=== PATIENT | male | born 1960 | race Caucasian/White ===

== ENCOUNTER 2016-09-24 15:14 | Emergency (ER) | payer OTHER ==
[2016-09-24 15:19] VITALS: BMI 39.3
[2016-09-24] MEDS ORDERED: NITROSTAT SL PRN (15:37)
--- NOTE | 2016-09-24 15:38 | DR.CP ---
HPI - Time Seen Time seen: 15:25 - PCP Primary Care Physician: KATHERIN - HPI Comment HPI Comment: PRECORDIAL CHEST ANN MARIE, PRESSURE RADIATING TO LT ARM AND SHOULDER THIS AM. CONSTANT. DID NOT TAKE HIS PAIN MED. - Complaint Chief Complaint Doctor Comments: CHEST PAIN Chief Complaint:: PT. C/O CHEST PAIN THAT BEGAN THIS MORNING UPON AWAKENING WHICH HAS BEEN CONSTANT IN NATURE. PT. STATES THE PAIN RADIATES UNDER LEFT BREAST, LEFT SHOULDER, AND LEFT ARM. PT. ALSO C/O FATIGUE. - Reviewed Nurses Notes Review: Yes - Source History Provided: Patient - Mode of Arrival Mode of Arrival: Ambulatory - Timing Onset of Chief Complaint: 09/24/16 Came on: Suddenly Pain: Present Now - Duration Duration: Constant Duration: Hours - Location Location of Chest Pain: Left, Chest Chest Pain Radiation Location: Left Arm, Left Shoulder - Context Onset: At rest Cardiac Risk Factors: Smoker, Family History, Hyperlipidemia, HTN PE Risk Factors: Recent Trauma/Surgery History of: Similar pain in the past Prehospital Care: ASA - Quality Quality: Pressure like - Severity Severity: Moderate - Modifying Factors Worsens: Nothing Impoves: Nothing - Associated Signs and Symptoms Associated Signs and Symptoms: Shortness of Breath PMH - PMH Past Medical History: Yes Past Medical History: Coronary Artery Disease, Dyslipidemia, Migraines, Headaches, Hypertension, Kidney Stones, Sleep Apnea Past Surgical History: Yes Surgical History: CABG/Valve Surgery, Cholecystectomy, Ortho Surgery, Lithotripsy - Family History History of Family Medical Conditions: Yes Family Medical History: Diabetes Mellitus, [place], Hypertension - Social History Does patient currently use any type of tobacco product: No Have you used tobacco products in the last 12 months: Yes Type of Tobacco Use: Cigarettes Does any household member use tobacco: No Alcohol Use: None Do you use any recreational Drugs:: No Lives With: Family Lives Where: Home - infectious screening In the last 2 months have you had wt loss of >10#?: NO Have you had fever, night sweats or hemotysis?: No Have you traveled outside the country in the last 6 months?: No Isolation: Standard ROS - Review of Systems Constitutional: Fatigue, Loss of Appetite. negative: Chills, Diaphoresis, Weakness Eyes: No Symptoms Reported. negative: Eye Pain, Discharge ENTM: No Symptoms Reported. negative: Ear Pain, Nose Discharge, Nose Congestion , Throat Pain Respiratoy: Short of Breath. negative: Productive Cough, Non-Productive Cough, Wheezing, Hemoptysis Cardiovascular: No Symptoms Reported, Chest Pain. negative: Edema, Palpitations , Syncope Genitourinary: No Symptoms Reported. negative: Dysuria, Frequency, Hematuria Neurological: No Symptoms Reported, Weakness (SAME SINCE SURGERY). negative: Headache Musculoskeletal: Muscle Pain Integumentary: No Symptoms Reported Hematologic/Lymphatic: No Symptoms Reported Endocrine: No Symptoms Reported All Other Systems: Reviewed and Negative PE - Vitals Vitals: Temperature 97.8 F Pulse Rate [Right Brachial] 70 Pulse Rate 79 Respiratory Rate 18 Blood Pressure [Left Arm] 99/61 Blood Pressure [Right Arm] 96/60 Blood Pressure 112/69 O2 Sat by Pulse Oximetry 96 - General Limitations: No Limitations General Appearance: Alert - Head Head Exam: Normal Inspection - Eyes Eye exam: Normal Appearance - ENT ENT Exam: Normal External Ear Exam - Chest Chest Inspection: Symmetric Chest Wall Rise - Respiratory Respiratory Exam: Normal Lung Sounds Bilat, Chest Wall Tenderness (MILD/POST OP) Respiratory Exam: Bilateral Clear to Auscultation - Cardiovascular Cardiovascular Exam: Regular Rate, Normal Rhythm, Normal Heart Sounds Pulse: Normal, Radial, Femoral Edema: Normal - Abdominal Exam Abdominal Exam: Normal Bowel Sounds, Soft, Distention. negative: Tenderness - Extremities Extremities Exam: Normal Inspection, Full ROM. negative: Tenderness - Back Back Exam: Normal Inspection - Neurologic Neurological Exam: Alert, Oriented X3, CN II-XII Intact, Reflexes Normal. negative: Motor Sensory Deficit - Psychiatric Psychiatric Exam: Normal Affect, Normal Mood - Skin Skin Exam: Normal Color MDM - Additional Information Additional Information Obtained From: Family - Differential Diagnosis Differential Diagnosis: Angina, Chest Wall Pain, Myocardial Infarction, Pericarditis, Pleuritis, Pneumonia, Pneumothorax, Pulmonary Embolus (CHF) Course - Treatment Treatment: SEE ORDERS. PAIN RELIEF IN ED WITH MORPHINE. PATIENT SAID HE FEEL FINE. WANT TO GO HOME. - Consultation Consultation Comments: DISCUSS WITH KIERSTEN GILLILAND, [facility], [place], VASCULAR SURGERY. PT TO GO HOME AND CALL THEIR SERVICE IE PAIN PERSIST. WILL HIM WEDNESDAY SCHEDULE. - Education/Counseling Education/Counseling: Patient, Family, Education Educated On: Treatment, Diagnosis, Needs for Follow Up ROR - Labs Reviewed Laboratory Results Reviewed?: Yes Result Diagrams: 09/24/16 15:40 09/24/16 15:40 Laboratory: WBC 9.0 X10^3/uL (3.6-10.0) 09/24/16 15:40 RBC 4.11 X10^6/uL (4.7-6.0) L 09/24/16 15:40 Hgb 12.2 g/dL (13.5-18.0) L 09/24/16 15:40 Hct 36.3 % (42.0-54.0) L 09/24/16 15:40 MCV 88.4 fL (80.0-100.0) 09/24/16 15:40 MCH 29.8 pg (27.0-34.0) 09/24/16 15:40 MCHC 33.7 g/dL (33.0-35.0) 09/24/16 15:40 RDW 15.6 % (11.6-16.5) 09/24/16 15:40 Plt Count 251 X10^3/uL (150.0-450.0) 09/24/16 15:40 MPV 7.6 fL (7.4-11.0) 09/24/16 15:40 Neut % 66.0 % (42.0-75.0) 09/24/16 15:40 Lymph % 22.4 % (21.0-51.0) 09/24/16 15:40 Willacy % 8.2 % (0.0-13.0) 09/24/16 15:40 Eos % 2.1 % (0.9-2.9) 09/24/16 15:40 Baso % 1.3 % (0.2-1.0) H 09/24/16 15:40 Neut # 6.0 x10^3/uL (2.2-4.8) H 09/24/16 15:40 Lymph # 2.0 X10^3/uL (1.3-2.9) 09/24/16 15:40 Willacy # 0.7 x10^3/uL (0.3-0.8) 09/24/16 15:40 Eos # 0.2 x10^3/uL (0.0-0.2) 09/24/16 15:40 Baso # 0.1 X10^3/uL (0.0-0.1) 09/24/16 15:40 Absolute Nucleated RBC 0.0 /100WBC 09/24/16 15:40 Sodium 138 mmol/L (136-145) 09/24/16 15:40 Corrected Sodium TNP 09/24/16 15:40 Potassium 4.3 mmol/L (3.5-5.1) 09/24/16 15:40 Chloride 102 mmol/L (98-107) 09/24/16 15:40 Carbon Dioxide 26.0 mmol/L (21-32) 09/24/16 15:40 BUN 14 mg/dL (7-18) 09/24/16 15:40 Creatinine 1.43 mg/dL (0.70-1.30) H 09/24/16 15:40 Est GFR (MDRD) Af Amer > 60 (>60) 09/24/16 15:40 Est GFR (MDRD) Non-Af 54 (>60) L 09/24/16 15:40 Glucose 96 mg/dL (65-99) 09/24/16 15:40 Calcium 9.0 mg/dL (8.5-10.1) 09/24/16 15:40 Corrected Calcium 9.6 mg/dL (8.5-10.1) 09/24/16 15:40 Total Bilirubin 0.30 mg/dL (0.2-1.0) 09/24/16 15:40 AST 12 Units/L (15-37) L 09/24/16 15:40 ALT 16 Units/L (12-78) 09/24/16 15:40 Alkaline Phosphatase 104 Units/L (46-116) 09/24/16 15:40 Creatine Kinase 54 Units/L (39-308) 09/24/16 15:40 CK-MB (CK-2) 1.0 ng/mL (0-4.0) 09/24/16 15:40 CK/CKMB % Calc 1.9 % (<4) 09/24/16 15:40 Troponin I < 0.02 ng/mL (0-1.5) 09/24/16 15:40 B-Natriuretic Peptide 161 pg/mL (0-79) H 09/24/16 15:40 Total Protein 6.8 g/dL (6.4-8.2) 09/24/16 15:40 Albumin 3.2 g/dL (3.4-5.0) L 09/24/16 15:40 Globulin 3.6 g/dL (2.5-4.5) 09/24/16 15:40 Albumin/Globulin Ratio 0.9 Ratio (1.1-2.1) L 09/24/16 15:40 - XRAY XRAY Interpreted by: Radiologist XRAY Findings: REPORT DISCUSS WITH PATIENT AND FAMILY. - EKG Rhythm: NSR (EKG NOTED) - Diagnosis Discharge Problem: Status post coronary artery bypass graft Chest pain Qualifiers: Chest pain type: precordial pain Qualified Code(s): R07.2 - Precordial pain - Discharge Plan Disposition: 01 HOME, SELF-CARE Condition: Stable - Follow ups/Referrals Follow ups/Referrals: Agapito Keita [Primary Care Provider] - 09/25/16 - Instructions Instructions: Chest Pain Observation Additional Instructions: RETURN TO ED IF WORSE. CALL E[facility]ER ALSO IF PAIN PERSIST.
[2016-09-24] MEDS ORDERED: ASPIRIN 81 MG CHEWTAB ONE (15:51)
[2016-09-24] MEDS ORDERED: ASPIRIN 81 MG CHEWTAB PO SCH (16:00)
[2016-09-24 16:02] LABS: BASOPHILS # (AUTO) 0.1 X10^3/uL (0.0-0.1); BASOPHILS % (AUTO) 1.3 % (0.2-1.0); EOSINOPHILS # (AUTO) 0.2 x10^3/uL (0.0-0.2); EOSINOPHILS % (AUTO) 2.1 % (0.9-2.9); HEMATOCRIT 36.3 % (42.0-54.0); HEMOGLOBIN 12.2 g/dL (13.5-18.0); LYMPHOCYTES % (AUTO) 22.4 % (21.0-51.0); MEAN CORPUSCULAR HEMOGLOBIN 29.8 pg (27.0-34.0); MEAN CORPUSCULAR HGB CONC 33.7 g/dL (33.0-35.0); MEAN CORPUSCULAR VOLUME 88.4 fL (80.0-100.0); MEAN PLATELET VOLUME 7.6 fL (7.4-11.0); MONOCYTES # (AUTO) 0.7 x10^3/uL (0.3-0.8); MONOCYTES % (AUTO) 8.2 % (0.0-13.0); PLATELET COUNT 251 X10^3/uL (150.0-450.0); RED BLOOD COUNT 4.11 X10^6/uL (4.7-6.0); RED CELL DISTRIBUTION WIDTH 15.6 % (11.6-16.5)
[2016-09-24 16:22] LABS: B-TYPE NATRIURETIC PEPTIDE 161 pg/mL (0-79)
[2016-09-24 16:23] LABS: ALANINE AMINOTRANSFERASE 16 Units/L (12-78); ALBUMIN 3.2 g/dL (3.4-5.0); ALKALINE PHOSPHATASE 104 Units/L (46-116); ASPARTATE AMINO TRANSFERASE 12 Units/L (15-37); BLOOD UREA NITROGEN 14 mg/dL (7-18); CHLORIDE 102 mmol/L (98-107); CKMB % 1.9 % (<4); COR CA(FOR HYPOALB) 9.6 mg/dL (8.5-10.1); CREATINE KINASE 54 Units/L (39-308); CREATININE 1.43 mg/dL (0.70-1.30); GLUCOSE 96 mg/dL (65-99); SODIUM 138 mmol/L (136-145); TOTAL PROTEIN 6.8 g/dL (6.4-8.2); TROPONIN I < 0.02 ng/mL (0-1.5); eGFR BLACK RACES > 60 (>60); eGFR NON BLACK RACES 54 (>60)
[2016-09-24] MEDS ORDERED: ZOFRAN INJ 4 MG VIAL IVP ONE (16:32)
[2016-09-24] MEDS ORDERED: MORPHINE SULFATE INJ 4 MG IVP ONE (16:32)
[2016-09-24] MEDS ORDERED: MORPHINE SULFATE INJ 4 MG ONE (16:34)
[2016-09-24] MEDS ORDERED: ZOFRAN INJ 4 MG VIAL ONE (16:34)
[2016-09-24 18:47] VITALS: BP 99/61
== END 2016-09-24 18:53 | disposition home or self-care (01) ==
LOC: ER 15:30
DX: R07.2 Precordial pain (principal); Z95.1 Presence of aortocoronary bypass graft; Z79.01 Long term (current) use of anticoagulants
CPT/HCPCS: 36415; 71010; 80053; 82550; 82553; 83880; 84484; 85025; 93005; 93010; 96365; 96374; 96375; 99283; A4222; J2270; J2405

== ENCOUNTER 2022-11-26 10:14 | Observation (INO) ==
--- NOTE | 2022-11-26 10:18 | DR.CP ---
HPI Time Seen Time Seen by Provider: 11/26/22 10:25 Complaint Chief Complaint Doctor Comments: 62 y/o male returns with persistent chest pain, shortness of breath. Started yesterday afternoon, after bringing up garbage cans. Seen and evaluated here by me, last pm. Labs acceptable then, pt was d/c'd to home. Pain has persisted, worsened. Located across anterior chest. Radiates to left shoulder blade. Worse with breathing, nothing makes it better. Associated with shortness of breath. Reviewed Nurses Notes Review: Yes Source History Provided: Patient PMH PMH Past Medical History: CHF, Hypertension and [place] Past Surgical History: Yes Surgical History: Angioplasty/Stents and CABG/Valve Surgery Family History Family Medical History: [place], Heart Failure and Hypertension Social History Does patient currently use any type of tobacco product: Yes Type of Tobacco Use: Cigarettes Alcohol Use: Occasionally Do you use any recreational Drugs:: No ROS Review of Systems Constitutional: No Symptoms Reported Eyes: No Symptoms Reported ENTM: No Symptoms Reported Respiratoy: Short of Breath Cardiovascular: Chest Pain Gastrointestinal/Abdominal: No Symptoms Reported Genitourinary: No Symptoms Reported Neurological: No Symptoms Reported Musculoskeletal: No Symptoms Reported Integumentary: No Symptoms Reported All Other Systems: Reviewed and Negative PE Vitals Vitals: Vital Signs Temperature 98.3 F Pulse Rate 80 Pulse Rate 87 Pulse Rate 85 Pulse Rate 85 Pulse Rate 84 Pulse Rate 87 Pulse Rate 84 Pulse Rate 76 Pulse Rate 67 Pulse Rate 71 Pulse Rate 74 Pulse Rate 73 Pulse Rate 72 Pulse Rate 65 Pulse Rate 65 Pulse Rate 70 Pulse Rate 71 Pulse Rate 67 Pulse Rate 68 Pulse Rate 68 Pulse Rate 68 Pulse Rate 66 Pulse Rate 71 Pulse Rate 70 Pulse Rate 74 Pulse Rate 72 Pulse Rate 75 Pulse Rate 76 Pulse Rate 76 Pulse Rate 79 Respiratory Rate 16 Respiratory Rate 24 Respiratory Rate 24 Respiratory Rate 22 Respiratory Rate 25 Respiratory Rate 18 Respiratory Rate 26 Respiratory Rate 25 Respiratory Rate 22 Respiratory Rate 34 Respiratory Rate 22 Respiratory Rate 15 Respiratory Rate 18 Respiratory Rate 20 Respiratory Rate 19 Respiratory Rate 22 Respiratory Rate 18 Respiratory Rate 21 Respiratory Rate 22 Respiratory Rate 23 Respiratory Rate 21 Respiratory Rate 22 Respiratory Rate 23 Respiratory Rate 16 Respiratory Rate 39 Respiratory Rate 20 Respiratory Rate 24 Blood Pressure 169/90 Blood Pressure 183/87 Blood Pressure 187/88 Blood Pressure 171/81 Blood Pressure 180/89 Blood Pressure 167/81 Blood Pressure 165/83 Blood Pressure 140/70 Blood Pressure 148/69 Blood Pressure 157/75 Blood Pressure 151/76 Blood Pressure 147/74 Blood Pressure 176/84 O2 Sat by Pulse Oximetry 97 O2 Sat by Pulse Oximetry 96 O2 Sat by Pulse Oximetry 96 O2 Sat by Pulse Oximetry 96 O2 Sat by Pulse Oximetry 97 O2 Sat by Pulse Oximetry 98 O2 Sat by Pulse Oximetry 97 O2 Sat by Pulse Oximetry 99 O2 Sat by Pulse Oximetry 100 O2 Sat by Pulse Oximetry 99 O2 Sat by Pulse Oximetry 99 O2 Sat by Pulse Oximetry 99 O2 Sat by Pulse Oximetry 98 O2 Sat by Pulse Oximetry 99 O2 Sat by Pulse Oximetry 98 O2 Sat by Pulse Oximetry 99 O2 Sat by Pulse Oximetry 98 O2 Sat by Pulse Oximetry 98 O2 Sat by Pulse Oximetry 98 O2 Sat by Pulse Oximetry 98 O2 Sat by Pulse Oximetry 99 O2 Sat by Pulse Oximetry 98 O2 Sat by Pulse Oximetry 97 O2 Sat by Pulse Oximetry 97 O2 Sat by Pulse Oximetry 97 O2 Sat by Pulse Oximetry 96 O2 Sat by Pulse Oximetry 96 O2 Sat by Pulse Oximetry 98 O2 Sat by Pulse Oximetry 98 O2 Sat by Pulse Oximetry 99 General General Appearance: Alert and In No Apparent Distress Eyes Eye exam: PERRL and EOMI ENT ENT Exam: Mucous Membranes Moist Chest Chest Inspection: Normal Inspection and Tenderness (anterior chest wall) Respiratory Respiratory Exam: Normal Lung Sounds Bilat; negative Accessory Muscle Use or Re spiratory Distress Cardiovascular Cardiovascular Exam: Regular Rate, Normal Rhythm and Normal Heart Sounds Abdominal Exam Abdominal Exam: Normal Bowel Sounds and Soft; negative Tenderness Extremities Extremities Exam: Normal Inspection and Full ROM; negative Tenderness or Edema Neurologic Neurological Exam: Alert, Oriented X3 and CN II-XII Intact; negative Motor Sensory Deficit Skin Skin Exam: Warm and Dry COURSE Treatment Treatment: 62 y/o male with chest pain, shortness of breath since yesterday. W/u initiated. Pt took ASA already. Given IV morphine/zofran. EKG - without acute ischemic changes. Added IV ativan. 1119 - Labs acceptable - with normal troponin, d-dimer, BNP. CXR with some increased interstitial markings. Covid sent. Will add a CTA of the chest for further evaluation. 1336 - CTA without acute abnormalities, except mild atelectasis. No evidence for acute CAD/PE or aorta issues. Pt with significant underlying CAD. Recommend admission for further evaluation. Will discuss with Dr Keita as to admission, will consult with cardiology (sees Dr Jefferson) with Dr Jimenez. Pt was seen by cardiology. He does not feel the chest pain is cardiac in origin. Pt told him that he was having difficulty in swallowing. Will consult Dr Pride for possible EGD. ROR Labs Reviewed Laboratory Results Reviewed?: Yes 11/26/22 10:28 11/26/22 10:28 Laboratory: WBC 10.3 X10^3/uL (3.6-10.0) H 11/26/22 10:28 RBC 4.50 X10^6/uL (4.7-6.0) L 11/26/22 10:28 Hgb 13.9 g/dL (13.5-18.0) 11/26/22 10:28 Hct 40.7 % (42.0-54.0) L 11/26/22 10:28 MCV 90.4 fL (80.0-100.0) 11/26/22 10:28 MCH 30.8 pg (27.0-34.0) 11/26/22 10:28 MCHC 34.1 g/dL (33.0-35.0) 11/26/22 10:28 RDW 15.2 % (11.6-16.5) 11/26/22 10:28 Plt Count 203 X10^3/uL (150.0-450.0) 11/26/22 10:28 MPV 8.3 fL (7.4-11.0) 11/26/22 10:28 Neut % (Auto) 79.2 % (42.0-75.0) H 11/26/22 10:28 Lymph % (Auto) 13.2 % (21.0-51.0) L 11/26/22 10:28 Pepin % (Auto) 5.9 % (0.0-13.0) 11/26/22 10:28 Eos % (Auto) 0.9 % (0.9-2.9) 11/26/22 10:28 Baso % (Auto) 0.8 % (0.2-1.0) 11/26/22 10:28 Neut # (Auto) 8.2 x10^3/uL (2.2-4.8) H 11/26/22 10:28 Lymph # (Auto) 1.4 X10^3/uL (1.3-2.9) 11/26/22 10:28 Pepin # (Auto) 0.6 x10^3/uL (0.3-0.8) 11/26/22 10:28 Eos # (Auto) 0.1 x10^3/uL (0.0-0.2) 11/26/22 10:28 Baso # (Auto) 0.1 X10^3/uL (0.0-0.1) 11/26/22 10:28 Absolute Nucleated RBC 0.0 /100WBC 11/26/22 10:28 D-Dimer 0.38 ug/ml (0.0-0.57) 11/26/22 10:28 Sodium 138 mmol/L (136-145) 11/26/22 10:28 Corrected Sodium TNP 11/26/22 10:28 Potassium 3.7 mmol/L (3.5-5.1) 11/26/22 10:28 Chloride 101 mmol/L (98-107) 11/26/22 10:28 Carbon Dioxide 25.6 mmol/L (21-32) 11/26/22 10:28 BUN 13 mg/dL (7-18) 11/26/22 10:28 Creatinine 1.36 mg/dL (0.70-1.30) H 11/26/22 10:28 Est GFR (MDRD) Af Amer > 60 (>60) 11/26/22 10:28 Est GFR (MDRD) Non-Af 56 (>60) L 11/26/22 10:28 Glucose 95 mg/dL (65-99) 11/26/22 10:28 Calcium 9.2 mg/dL (8.5-10.1) 11/26/22 10:28 Corrected Calcium TNP 11/26/22 10:28 Total Bilirubin 0.60 mg/dL (0.2-1.0) 11/26/22 10:28 AST 25 Units/L (15-37) 11/26/22 10:28 ALT < 6 Units/L (12-78) L 11/26/22 10:28 Alkaline Phosphatase 117 Units/L (46-116) H 11/26/22 10:28 Troponin I High Sens 21.6 ng/L (4.0-60.0) 11/26/22 14:35 B-Natriuretic Peptide 36.2 pg/mL (0-79) 11/26/22 10:28 Total Protein 7.0 g/dL (6.4-8.2) 11/26/22 10:28 Albumin 4.2 g/dL (3.4-5.0) 11/26/22 10:28 Globulin 2.8 g/dL (2.5-4.5) 11/26/22 10:28 Albumin/Globulin Ratio 1.5 Ratio (1.1-2.1) 11/26/22 10:28 Lipase 88 Units/L (73-393) 11/26/22 10:28 SARS CoV-2 RNA Rapid POP Negative (NEGATIVE) 11/26/22 11:15 Labs acceptable. XRAY XRAY Interpreted by: Both X-ray Results: CXR, CTA without worrisome findings. EKG Rate: 77 Drummond[place]: Normal Rhythm: NSR Block: RBBB (w/LAFB) ST: Nonsp Opioid Opioid Risk Tool Age (Stephon box if 16-45): No Total: 0 Total Score Risk Category: Low Risk Copyright: Hermilo SHETH predicting aberrant behaviors Discharge Plan Diagnosis Discharge Problem: Chest pain Discharge Plan Patient Disposition: ADMITTED INPATIENT Condition: Stable Orders to Discharge Patient Discharge Orders: Transfer (Routine); Ordered 11/26/22 Ordered By: Diego Friedman
[2022-11-26 10:20] VITALS: BMI 36.3
[2022-11-26] MEDS ORDERED: MORPHINE SULFATE INJ 4 MG IVP ONE (10:25)
[2022-11-26] MEDS ORDERED: ZOFRAN INJ 4 MG VIAL IVP ONE (10:25)
[2022-11-26] MEDS ORDERED: ZOFRAN INJ 4 MG VIAL ONE (10:26)
[2022-11-26] MEDS ORDERED: MORPHINE SULFATE INJ 4 MG ONE (10:26)
[2022-11-26] MEDS ORDERED: ATIVAN INJ 2 MG VIAL IVP STA (10:39)
[2022-11-26] MEDS ORDERED: ATIVAN INJ 2 MG VIAL ONE (10:41)
[2022-11-26 10:46] LABS: BASOPHILS # (AUTO) 0.1 X10^3/uL (0.0-0.1); BASOPHILS % (AUTO) 0.8 % (0.2-1.0); EOSINOPHILS # (AUTO) 0.1 x10^3/uL (0.0-0.2); EOSINOPHILS % (AUTO) 0.9 % (0.9-2.9); HEMATOCRIT 40.7 % (42.0-54.0); HEMOGLOBIN 13.9 g/dL (13.5-18.0); LYMPHOCYTES # (AUTO) 1.4 X10^3/uL (1.3-2.9); LYMPHOCYTES % (AUTO) 13.2 % (21.0-51.0); MEAN CORPUSCULAR HEMOGLOBIN 30.8 pg (27.0-34.0); MEAN CORPUSCULAR HGB CONC 34.1 g/dL (33.0-35.0); MEAN CORPUSCULAR VOLUME 90.4 fL (80.0-100.0); MEAN PLATELET VOLUME 8.3 fL (7.4-11.0); MONOCYTES # (AUTO) 0.6 x10^3/uL (0.3-0.8); MONOCYTES % (AUTO) 5.9 % (0.0-13.0); NEUTROPHILS # (AUTO) 8.2 x10^3/uL (2.2-4.8); NEUTROPHILS % (AUTO) 79.2 % (42.0-75.0); PLATELET COUNT 203 X10^3/uL (150.0-450.0); RED CELL DISTRIBUTION WIDTH 15.2 % (11.6-16.5); WHITE BLOOD COUNT 10.3 X10^3/uL (3.6-10.0)
--- NOTE | 2022-11-26 10:50 | EKG ---
Test Reason : Chest Pain Blood Pressure : */* mmHG Vent. Rate : 77 BPM Atrial Rate : 77 BPM P-R Int : 170 ms QRS Dur : 152 ms QT Int : 440 ms P-R-T Axes : 28 -57 95 degrees QTc Int : 497 ms Normal sinus rhythm Right bundle branch block Left anterior fascicular block Bifascicular block Left ventricular hypertrophy with repolarization abnormality ( R in aVL , [place] ) Abnormal ECG When compared with ECG of 25-NOV-2022 17:56, (Unconfirmed) No significant change was found Referred By: Confirmed By:
--- NOTE | 2022-11-26 11:01 | RAD ---
HISTORYCHEST PAIN, SOB.brSTUDYCHEST, 1 VIEWCOMPARISONAugust 16TECHNIQUEPortable chest radiographFINDINGSStable heart size. Postoperative changes of median sternotomy and coronary bypass surgery. Developing interstitial prominence with alveolar ground-glass changes most pronounced within the mid to lower lung hilario. No significant pleural fluid collections. There is no evidence of free air or pneumothorax. No acute osseous abnormalities of the chest are identified.IMPRESSIONDeveloping interstitial prominence and ground-glass changes which could be associated with pulmonary edema or atypical pneumonia depending on clinical presentationThe heart size is stable and mildly enlarged for technique, with evidence of prior coronary bypass surgery.Electronically signed by: MARILOU GUTIERREZ (Nov 26, 2022 10:50:17)
[2022-11-26 11:06] LABS: ALANINE AMINOTRANSFERASE < 6 Units/L (12-78); ALBUMIN 4.2 g/dL (3.4-5.0); ALKALINE PHOSPHATASE 117 Units/L (46-116); ASPARTATE AMINO TRANSFERASE 25 Units/L (15-37); BLOOD UREA NITROGEN 13 mg/dL (7-18); CALCIUM 9.2 mg/dL (8.5-10.1); CARBON DIOXIDE 25.6 mmol/L (21-32); CHLORIDE 101 mmol/L (98-107); CREATININE 1.36 mg/dL (0.70-1.30); GLUCOSE 95 mg/dL (65-99); LIPASE 88 Units/L (73-393); POTASSIUM 3.7 mmol/L (3.5-5.1); SODIUM 138 mmol/L (136-145); eGFR NON BLACK RACES 56 (>60)
--- NOTE | 2022-11-26 12:24 | CT ---
HISTORYCHEST PAIN, SOBSTUDYCTA CHESTCOMPARISONChest radiograph from 11/26/2022.TECHNIQUECTA chest protocol with axial images from the thoracic inlet to upper abdomen with IV contrast. Sagittal and coronal reformats and MIP images were created. Automated exposure control was utilized.FINDINGSThe visualized thyroid gland appears benign. Streak artifact from contrast in the right subclavian vein and SVC limits evaluation. Mildly atherosclerotic normal caliber thoracic aorta. No central PE. No definite peripheral PE but suboptimal contrast bolus timing and streak/motion artifact mildly limits evaluation. The heart is mildly enlarged. No pericardial effusion. No pathologic adenopathy in the thorax. Suspect hepatic steatosis. Status post cholecystectomy. Mild thickening of the adrenal glands is nonspecific but often adenomatous. Atrophy of portion of the left upper pole of the kidney. Postoperative change the greater curvature of the stomach. No acute osseous abnormality. The trachea and mainstem bronchi appear patent. Mild paraseptal emphysema in the left upper lobe. Mild mainly dependent ground-glass opacities likely atelectasis. No pleural effusion or pneumothorax. Status post median sternotomy and CABG.IMPRESSIONNo definite PE.Mild cardiomegaly. Mainly dependent ground-glass opacities in the lungs likely atelectasis.Incidental findings as above.Electronically signed by: Sadiq Alcantar (Nov 26, 2022 12:23:23)
[2022-11-26] MEDS ORDERED: NORVASC TAB 5 MG PO ONE (14:36)
[2022-11-26] MEDS ORDERED: NORVASC TAB 5 MG ONE (14:38)
--- NOTE | 2022-11-26 14:59 | DR.CONSULT ---
CONSULT Consultation for Day of: Date: 11/26/22 Chief Complaint Chief Complaint: chest pain/sob/difficulty swallowing- pills getting caught Allergies Allergies Allergy/AdvReac Type Severity Reaction Status Date / Time Influenza Virus Vaccines Allergy Verified 11/25/22 18:05 CODEINE Allergy Uncoded 09/24/16 16:32 History of Present Illness History of Present Illness: I know him from years ago- last stent 2020 ( still on tricagelor)-tells me recent echo/nuc/holter from [facility] in 08/02 ok- says last week: pills in particular and food gets caught provoking coughing/sob- came to er last pm after moving garbage can with cp/sob- ekg: nothing acute/trops negative- came back with sob /cp this am after taking am pills-ekg: no changes, another trop neagtive and second one pending. bp up. cp mostly on since yesterday but got some relief with pain meds. d dimer negative. CTA chest neg for PE. Has a history of esophageal stricture s/p stretching with [facility] in [place] Past Medical History Past Medical History: CHF, Hypertension and [place] Past Surgical History Surgical History: Angioplasty/Stents and CABG/Valve Surgery Family History Family Medical History: [place], Heart Failure and Hypertension Social History Does patient currently use any type of tobacco product: Yes Have you used tobacco products in the last 12 months: Yes Type of Tobacco Use: Cigarettes Does any household member use tobacco: Yes Alcohol Use: Occasionally Medications Home Medications: Influenza Virus Vaccines Allergy (Verified 11/25/22 18:05) CODEINE Allergy (Uncoded 09/24/16 16:32) Physical Exam Vital Signs: Vital Signs Temperature 98.3 F Pulse Rate 65 Pulse Rate 65 Pulse Rate 70 Pulse Rate 71 Pulse Rate 67 Pulse Rate 68 Pulse Rate 68 Pulse Rate 68 Pulse Rate 66 Pulse Rate 71 Pulse Rate 70 Pulse Rate 74 Pulse Rate 72 Pulse Rate 75 Pulse Rate 76 Pulse Rate 76 Pulse Rate 79 Respiratory Rate 22 Respiratory Rate 15 Respiratory Rate 18 Respiratory Rate 20 Respiratory Rate 19 Respiratory Rate 22 Respiratory Rate 18 Respiratory Rate 21 Respiratory Rate 22 Respiratory Rate 23 Respiratory Rate 21 Respiratory Rate 22 Respiratory Rate 23 Respiratory Rate 16 Respiratory Rate 39 Respiratory Rate 20 Respiratory Rate 24 Blood Pressure 167/81 Blood Pressure 165/83 Blood Pressure 140/70 Blood Pressure 148/69 Blood Pressure 157/75 Blood Pressure 151/76 Blood Pressure 147/74 Blood Pressure 176/84 O2 Sat by Pulse Oximetry 99 O2 Sat by Pulse Oximetry 98 O2 Sat by Pulse Oximetry 99 O2 Sat by Pulse Oximetry 98 O2 Sat by Pulse Oximetry 98 O2 Sat by Pulse Oximetry 98 O2 Sat by Pulse Oximetry 98 O2 Sat by Pulse Oximetry 99 O2 Sat by Pulse Oximetry 98 O2 Sat by Pulse Oximetry 97 O2 Sat by Pulse Oximetry 97 O2 Sat by Pulse Oximetry 97 O2 Sat by Pulse Oximetry 96 O2 Sat by Pulse Oximetry 96 O2 Sat by Pulse Oximetry 98 O2 Sat by Pulse Oximetry 98 O2 Sat by Pulse Oximetry 99 alert ox3 nad no jvd/bruits lungs clear rrr mild edema feet obese Plan (1) Chest pain: Status: Acute Narrative Support Text: get another trop and stop if negative, resume home meds but hold tricagelor for possible egd in am- ( 2 years after last stent)- i will try to gather latest stress/echo observe over night- get surgery involved for gi eval/stretch if needed (2) Dysphagia: Status: Acute Narrative Support Text: scope in am or barium swallow (3) Hypertension: Status: Acute Narrative Support Text: resume home bp meds (4) Hyperlipidemia: Status: Acute Narrative Support Text: resume statins (5) Smoker: Status: Acute Narrative Support Text: stop smoking
[2022-11-26] MEDS ORDERED: ATIVAN TAB 1 MG ONE (16:34)
[2022-11-26] MEDS: ATIVAN TAB 1 MG PO PRN (16:37)
[2022-11-26] MEDS ORDERED: CONSULT PHARMACY - POTASSIUM & MAGNESIUM XX SCH (17:13)
[2022-11-26] MEDS ORDERED: VALIUM ONE (17:47)
[2022-11-26] MEDS: VALIUM PO PRN (17:49)
[2022-11-26] MEDS ORDERED: ZESTRIL TAB 20 MG ONE (20:46)
[2022-11-26] MEDS: ZESTRIL TAB 20 MG PO SCH (20:51)
[2022-11-26] MEDS: PriLOSEC PO SCH (20:51)
[2022-11-26] MEDS: REQUIP PO SCH (20:52)
[2022-11-26] MEDS: SINEMET (PLAIN) 25/250 MG PO SCH (21:01)
[2022-11-26] MEDS ORDERED: K-DUR TAB 20 MEQ PO ONE (22:00)
[2022-11-27] MEDS ORDERED: K-DUR TAB 20 MEQ PO ONE (01:24)
[2022-11-27] MEDS: VALIUM PO PRN (01:30)
--- NOTE | 2022-11-27 05:02 | RAD ---
PROCEDURE: Chest X-ray 1 View .HISTORY: Dyspnea.TECHNIQUE: AP portable done at 4:28 a.m..COMPARISON: 11/26/2022.TECHNICAL QUALITY: Satisfactory .FINDINGS:Normal size heart .Mediastinum and hilar regions show no masses or lymphadenopathy .Normal central vascularity .No pulmonary consolidation, masses, pleural fluid, or pneumothorax .Previous sternotomy.IMPRESSION:1. Clear lungs on today's study.2. No other evidence of active disease.Electronically signed by: Jayme Thacker (Nov 27, 2022 05:01:40)
[2022-11-27 05:45] LABS: BASOPHILS % (AUTO) 0.5 % (0.2-1.0); EOSINOPHILS # (AUTO) 0.1 x10^3/uL (0.0-0.2); EOSINOPHILS % (AUTO) 1.5 % (0.9-2.9); HEMOGLOBIN 13.2 g/dL (13.5-18.0); LYMPHOCYTES % (AUTO) 21.4 % (21.0-51.0); MEAN CORPUSCULAR HEMOGLOBIN 31.5 pg (27.0-34.0); MEAN CORPUSCULAR HGB CONC 34.7 g/dL (33.0-35.0); MEAN CORPUSCULAR VOLUME 90.6 fL (80.0-100.0); MEAN PLATELET VOLUME 8.6 fL (7.4-11.0); MONOCYTES # (AUTO) 0.5 x10^3/uL (0.3-0.8); MONOCYTES % (AUTO) 5.4 % (0.0-13.0); NEUTROPHILS # (AUTO) 6.7 x10^3/uL (2.2-4.8); NEUTROPHILS % (AUTO) 71.2 % (42.0-75.0); PLATELET COUNT 186 X10^3/uL (150.0-450.0); RED CELL DISTRIBUTION WIDTH 15.1 % (11.6-16.5); WHITE BLOOD COUNT 9.4 X10^3/uL (3.6-10.0)
[2022-11-27] MEDS: SINEMET (PLAIN) 25/250 MG PO SCH (05:45)
[2022-11-27 05:54] LABS: ALANINE AMINOTRANSFERASE < 6 Units/L (12-78); ALBUMIN 3.6 g/dL (3.4-5.0); ALKALINE PHOSPHATASE 104 Units/L (46-116); ASPARTATE AMINO TRANSFERASE 21 Units/L (15-37); BLOOD UREA NITROGEN 12 mg/dL (7-18); CALCIUM 8.8 mg/dL (8.5-10.1); CARBON DIOXIDE 27.2 mmol/L (21-32); CHLORIDE 104 mmol/L (98-107); CREATININE 1.25 mg/dL (0.70-1.30); GLUCOSE 81 mg/dL (65-99); POTASSIUM 3.9 mmol/L (3.5-5.1); SODIUM 140 mmol/L (136-145); TOTAL PROTEIN 6.4 g/dL (6.4-8.2); eGFR NON BLACK RACES > 60 (>60)
[2022-11-27] MEDS: PULMICORT NEB TX 0.5 MG NEB SCH ×2 (07:59→09:22)
[2022-11-27] MEDS: Atrovent NEB TX 0.02% NEB SCH ×2 (07:59→08:00)
[2022-11-27] MEDS ORDERED: ZESTRIL TAB 20 MG ONE (08:07)
--- NOTE | 2022-11-27 08:09 | DR.PROGNOT ---
HOSPITAL PROGRESS NOTE Progress Note for Day of: Progress Note Date: 11/27/22 History of Present Illness History of Present Illness: feels better today- no meds yet as bp up. trops all negative- stress test 08/02: inf scar no ischemia, echo: lvh/normal ef- has not ate/taken brilinta today - will wait for surgery to see/strongly consider egd/dilatation if necessary but having sign sx Past Medical Family Social History Allergies: Allergies Influenza Virus Vaccines Allergy (Verified 11/25/22 18:05) CODEINE Allergy (Uncoded 09/24/16 16:32) Vital Signs Vital Signs: Vital Signs Temperature 98.2 F Pulse Rate [Apical] 59 Respiratory Rate 16 Blood Pressure [Left Arm] 161/76 O2 Sat by Pulse Oximetry 98 alert ox3 nad kirstie leodan clear lungs minimal edeema Physical Exam Speech Pattern: Clear and Appropriate Laboratory and Diagnostics 11/27/22 04:12 11/27/22 04:12 Labs: Laboratory WBC 9.4 X10^3/uL (3.6-10.0) 11/27/22 04:12 RBC 4.20 X10^6/uL (4.7-6.0) L 11/27/22 04:12 Hgb 13.2 g/dL (13.5-18.0) L 11/27/22 04:12 Hct 38.0 % (42.0-54.0) L 11/27/22 04:12 MCV 90.6 fL (80.0-100.0) 11/27/22 04:12 MCH 31.5 pg (27.0-34.0) 11/27/22 04:12 MCHC 34.7 g/dL (33.0-35.0) 11/27/22 04:12 RDW 15.1 % (11.6-16.5) 11/27/22 04:12 Plt Count 186 X10^3/uL (150.0-450.0) 11/27/22 04:12 MPV 8.6 fL (7.4-11.0) 11/27/22 04:12 Neut % (Auto) 71.2 % (42.0-75.0) 11/27/22 04:12 Lymph % (Auto) 21.4 % (21.0-51.0) 11/27/22 04:12 [place] % (Auto) 5.4 % (0.0-13.0) 11/27/22 04:12 Eos % (Auto) 1.5 % (0.9-2.9) 11/27/22 04:12 Baso % (Auto) 0.5 % (0.2-1.0) 11/27/22 04:12 Neut # (Auto) 6.7 x10^3/uL (2.2-4.8) H 11/27/22 04:12 Lymph # (Auto) 2.0 X10^3/uL (1.3-2.9) 11/27/22 04:12 [place] # (Auto) 0.5 x10^3/uL (0.3-0.8) 11/27/22 04:12 Eos # (Auto) 0.1 x10^3/uL (0.0-0.2) 11/27/22 04:12 Baso # (Auto) 0.0 X10^3/uL (0.0-0.1) 11/27/22 04:12 Absolute Nucleated RBC 0.0 /100WBC 11/27/22 04:12 D-Dimer 0.38 ug/ml (0.0-0.57) 11/26/22 10:28 Sodium 140 mmol/L (136-145) 11/27/22 04:12 Corrected Sodium TNP 11/27/22 04:12 Potassium 3.9 mmol/L (3.5-5.1) 11/27/22 04:12 Chloride 104 mmol/L (98-107) 11/27/22 04:12 Carbon Dioxide 27.2 mmol/L (21-32) 11/27/22 04:12 BUN 12 mg/dL (7-18) 11/27/22 04:12 Creatinine 1.25 mg/dL (0.70-1.30) 11/27/22 04:12 Est GFR (MDRD) Af Amer > 60 (>60) 11/27/22 04:12 Est GFR (MDRD) Non-Af > 60 (>60) 11/27/22 04:12 Glucose 81 mg/dL (65-99) 11/27/22 04:12 POC Glucose (mg/dL) 94 mg/dL (65-99) 11/26/22 20:24 Calcium 8.8 mg/dL (8.5-10.1) 11/27/22 04:12 Corrected Calcium TNP 11/27/22 04:12 Magnesium 2.1 mg/dL (2.0-2.9) 11/26/22 20:31 Total Bilirubin 0.50 mg/dL (0.2-1.0) 11/27/22 04:12 AST 21 Units/L (15-37) 11/27/22 04:12 ALT < 6 Units/L (12-78) L 11/27/22 04:12 Alkaline Phosphatase 104 Units/L (46-116) 11/27/22 04:12 Troponin I High Sens 25.9 ng/L (4.0-60.0) 11/26/22 20:31 B-Natriuretic Peptide 36.2 pg/mL (0-79) 11/26/22 10:28 Total Protein 6.4 g/dL (6.4-8.2) 11/27/22 04:12 Albumin 3.6 g/dL (3.4-5.0) 11/27/22 04:12 Globulin 2.8 g/dL (2.5-4.5) 11/27/22 04:12 Albumin/Globulin Ratio 1.3 Ratio (1.1-2.1) 11/27/22 04:12 Lipase 88 Units/L (73-393) 11/26/22 10:28 SARS CoV-2 RNA Rapid POP Negative (NEGATIVE) 11/26/22 11:15 Assessment and Plan 1: dysphagia- await surgery/egd- low acceptable CV risk- holding brilinta 2: cad 3: hypertension 4: hyperlipidema Problem Patient Problems: Patient Problems Chest pain (Acute) R07.9
[2022-11-27] MEDS: LIPITOR TAB 40 MG PO SCH ×2 (08:10→10:16)
[2022-11-27] MEDS: EFFEXOR XR 150 MG CAP 24-HR PO SCH ×2 (08:10→10:16)
[2022-11-27] MEDS: PriLOSEC PO SCH (08:10)
[2022-11-27] MEDS: ZESTRIL TAB 20 MG PO SCH (08:10)
[2022-11-27] MEDS: REQUIP PO SCH (08:10)
[2022-11-27] MEDS: ATIVAN TAB 1 MG PO PRN (08:10)
[2022-11-27] MEDS ORDERED: ASPIRIN EC 81 MG PO SCH (09:00)
[2022-11-27] MEDS ORDERED: PATIENT'S HOME MEDICATION (Fluticasone-Umeclidin-Vilanter [Trelegy Ellipta] 100-62.5-25 mc IN SCH (09:00)
[2022-11-27] MEDS ORDERED: NORVASC TAB 5 MG PO SCH (09:00)
[2022-11-27] MEDS ORDERED: COREG TAB 6.25 MG PO ONE (10:04)
[2022-11-27 12:11] VITALS: BP 159/78; PULSE 74; RESP 17; TEMP 97.9; O2SAT 99
== END 2022-11-27 13:10 | disposition home or self-care (01) ==
LOC: ER 10:14 → ICU 10:14 → U 10:14
PROVIDERS: ADMIT Internal Medicine; ATTEND Internal Medicine